=== PATIENT | female | born 1955 | race Two or more races ===

== ENCOUNTER → 2024-03-04 | Outpatient (CLI) | payer MEDICARE, MEDICAID, SELFPAY ==
--- NOTE | 2024-03-04 13:00 | XR_ITS ---
Examination: Breast ultrasound, unilateral, left complete Date and time of exam: March 04, 2024 1328 hours INDICATIONS: Mammogram December 25, 2023 8 mm focal asymmetry inner upper left breast Technique: Real-time hamilton scale ultrasonographic imaging performed left breast including all 4 quadrants as well as nipple retroareolar and axillary region. Findings: 1:00 cyst 4 x 7 mm No solid nodules IMPRESSION: BI-RADS Category 2: Benign findings
--- NOTE | 2024-03-04 13:30 | XR_ITS ---
Examination: Diagnostic digital mammography, unilateral, left Computer aided detection 3-D breast Tomosynthesis, unilateral Date and time of exam: March 04, 2024 1358 hours INDICATIONS: Mammogram December 25, 2023 8 mm focal asymmetry retroareolar region left breast Technique: Nonmagnified MLO, CC views of the left breast have been obtained, reconstructed from 3-D Tomosynthesis images. R2 computer aided detection program utilized for evaluation of suspicious masses and/or abnormal calcifications. 3-D Tomosynthesis images obtained. Findings: Scattered areas of fibroglandular density 4 mm circumscribed nodule retroareolar region left breast Impression: BI-RADS category 2: Benign findings Recommend yearly follow-up mammography
== END | disposition home or self-care (01) ==
LOC: CDIM 13:02
PROVIDERS: Referring Provider Nurse Practitioner Primary Care; Visit Provider Nurse Practitioner Primary Care
DX: R92.322 Mammographic fibroglandular density, left breast (principal)
CPT/HCPCS: 76641; 77061; 77065; G0279

== ENCOUNTER 2024-04-20 12:00 | Emergency (ER) | payer MEDICARE, MEDICAID, SELFPAY ==
--- NOTE | 2024-04-20 | XR_ITS ---
Examinations: MRI Brain without intravenous contrast. MRA brain without intravenous contrast. MRA carotids without intravenous contrast 3-D vascular reconstructions Date and time of exam: July 18, 2024 1532 hours INDICATIONS: Stroke alert today, onset facial droop and headache beginning 10:30 AM this morning Technique: Multiple axial and sagittal images of the brain have been obtained MRA brain carotid images without contrast obtained, including 3-D postprocessing, vascular maximum intensity projection images Findings: Sellaturcica is not enlarged. The optic chiasm and infundibular stalk are not remarkable. Prepontine and interpeduncular cisterns are not enlarged. No localized enlargement of the medulla or sandrine. Fourth ventricle and cerebellar tonsils normal in position. Subacute hemorrhage is not seen. Fourth ventricle is midline. Mass in the cerebellopontine angle region is not evident. 7th and 8th nerve complexes exhibits symmetry. Globes are symmetrical with no retro-orbital mass. Increased white matter signal mild Diffusion-weighted images demonstrate no focus of restricted diffusion Mass-effect upon the ventricular system is not identified. MRA carotid images degraded by patient motion. MRA brain images no large vessel occlusions Impression: Negative for acute hemorrhage, mass effect or midline shift No acute infarct Mild chronic microvascular white matter change No cerebral large vessel arterial occlusions
--- NOTE | 2024-04-20 12:03 | XR_ITS ---
Examination: CT brain head without contrast. 2-D sagittal coronal reconstructions Date and time of exam: 2019 hours INDICATIONS: Stroke alert, onset facial droop headache beginning 10:30 AM this morning CTDI: vol (mGy):49.9 DLP: (mGycm):984 Technique: Multiple CT axial sections of the brain have been obtained, 5 mm slice thickness. Contrast has not been administered. 2-D sagittal, coronal reconstructions have been obtained Low dose protocols were performed. One or more of the following dose reduction techniques were used; automated exposure control, adjustment of the mA and/or KV according to patient size, use of iterative reconstruction technique. Findings: No significant ventricular enlargement. Intra-axial or extra-axial hemorrhage density is not seen. No mass effect or midline shift Basal cisterns are not remarkable. Fourth ventricle is midline. Cranial vault intact. Impression: Negative for acute hemorrhage, mass effect or midline shift Advise clinical correlation follow-up accordingly
--- NOTE | 2024-04-20 12:03 | EKG_ITS ---
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
[2024-04-20 12:11] LABS: Basophils % (Auto) 0 % (0-2.5); Eosinophils # (Auto) 0.2 Thou/mm3 (0.0-0.5); Eosinophils % (Auto) 2 % (0-10); Hematocrit 41.8 % (36.0-46.0); Hemoglobin 14.4 g/dL (12.0-16.0); Immature Granulocytes % (Auto) 0 % (0-0); Immature Granulocytes Auto 0.02 Thou/mm3 (0.00-0.00); Lymphocytes # (Auto) 3.1 Thou/mm3 (1.0-4.8); Lymphocytes % (Auto) 34 % (10-50); Mean Corpuscular HGB Conc 34.4 g/dl (31.0-37.0); Mean Corpuscular Hemoglobin 29.3 pg (25.0-35.0); Mean Corpuscular Volume 85 fL (80-100); Monocytes # (Auto) 0.8 Thou/mm3 (0.0-0.8); Monocytes % (Auto) 9 % (0-12); Neutrophils % (Auto) 55 % (37-80); Nucleated Red Blood Cell % 0 /100 WBC (0); Platelet Count 289 Thou/mm3 (140-440); RDW Standard Deviation 39.5 fL (36.4-46.3); Red Blood Count 4.92 Miln/mm3 (4.00-5.20); White Blood Count 9.1 Thou/mm3 (3.6-11.0)
--- NOTE | 2024-04-20 12:23 | ESCONSULT_ITS ---
Tele Neuro Consultation Consultation Date 04/20/24 Consultation Narrative [facility] Tele[facility]urology Consult Services Patient Name:???Inge Saenz Date of :???1955 Identification Number:??? Date of Service:???04/20/2024 11:53:55 Diagnosis:?R29.810 - Facial numbness/ Facial weakness Impression: ?Differential includes stroke/TIA versus Walls's palsy versus tox metabolic. Greater recommend headache cocktails as needed, tox metabolic and infectious workup per the ER, admit for MRI brain with and without contrast to definitively rule out any acute intracranial findings. If negative can treat as Walls's palsy. Neuro follow-up recommended. Our recommendations are outlined below. Recommendations: ? Stroke/Telemetry Floor ? Neuro Checks ? Bedside Swallow Eval ? DVT Prophylaxis ? IV Fluids, Normal Saline ? Head of Bed 30 Degrees ? Euglycemia and Avoid Hyperthermia (PRN Acetaminophen) Advanced Imaging: Advanced Imaging Deferred because: Non-disabling symptoms as verified by the patient; no cortical signs so not consistent with LVO Metrics: Last Known Well: Unknown Dispatch Time: 04/20/2024 11:53:55 Arrival Time: 04/20/2024 12:00:00 Initial Response Time: 04/20/2024 11:56:34Symptoms: MIXON, facial droop. Initial patient interaction: 04/20/2024 12:03:05 NIHSS Assessment Completed: 04/20/2024 12:13:28Patient is not a candidate for Thrombolytic. Thrombolytic Medical Decision: 04/20/2024 12:13:30Patient was not deemed candidate for Thrombolytic because of following reasons: LKW outside 4.5 hr window. . I personally Reviewed the CT Head and it Showed no acute abnormalities ED Physician not notified of diagnostic impression and management plan because Called ED multiple times no one picked up the phone. Please call with questions or concerns History of Present Illness:Patient is a 68 year old Female. Patient was brought by EMS for symptoms of MIXON, facial droop. 68-year-old female history of diabetes presents the hospital for headache and facial droop. Apparently she has been having headache for the past 8 days. Today she was at the doctor's office and they noticed facial droop therefore she was sent to the ER. Patient reports that she is having headache especially around the left ear. Noticing bilateral dry eyes for the past few days. Denies any taste changes. On exam she appears to have facial weakness that seems to be peripheral in the left side. The rest of her exam is nonfocal. She does report some decrease sensation on the left face when compared to the right but unclear. Patient appears to be little somnolent and lethargic. Past Medical History: ?Diabetes Mellitus Other PMH:? See HPI Above Medications: No Anticoagulant use? No Antiplatelet use Reviewed EMR for current medications Allergies:? Reviewed Social History: Drug Use: No Family History: There is no family history of premature cerebrovascular disease pertinent to this consultation ROS : 14 Points Review of Systems was performed and was negative except mentioned in HPI. Past Surgical History: There Is No Surgical History Contributory To Today?s Visit Examination: BP(208/),?Pulse(80), 1A: Level of Consciousness - Arouses to minor stimulation?+ 1 1B: Ask Month and Age - Both Questions Right?+ 0 1C: Blink Eyes & Squeeze Hands - Performs Both Tasks?+ 0 2: Test Horizontal Extraocular Movements - Normal?+ 0 3: Test Visual Talley - No Visual Loss?+ 0 4: Test Facial Palsy (Use Grimace if Obtunded) - Partial paralysis (lower face)? + 2 5A: Test Left Arm Motor Drift - No Drift for 10 Seconds?+ 0 5B: Test Right Arm Motor Drift - No Drift for 10 Seconds?+ 0 6A: Test Left Leg Motor Drift - No Drift for 5 Seconds?+ 0 6B: Test Right Leg Motor Drift - No Drift for 5 Seconds?+ 0 7: Test Limb Ataxia (FNF/Heel-Barksdale) - No Ataxia?+ 0 8: Test Sensation - Mild-Moderate Loss: Less Sharp/More Dull?+ 1 9: Test Language/Aphasia - Normal; No aphasia?+ 0 10: Test Dysarthria - Normal?+ 0 11: Test Extinction/Inattention - No abnormality?+ 0 NIHSS Score:?4 Pre-Morbid Modified Claudio Scale:0 Points = No symptoms at all This consult was conducted in real time using interactive audio and video technology. Patient was informed of the technology being used for this visit and agreed to proceed. Patient located in hospital and provider located at home/office setting. Patient is being evaluated for possible acute neurologic impairment and high probability of imminent or life-threatening deterioration. I spent total of 35 minutes providing care to this patient, including time for face to face visit via telemedicine, review of medical records, imaging studies and discussion of findings with providers, the patient and/or family. Dr Emerson Contreras [facility] For Inpatient follow-up with [facility] physician please call [facility] at . As we are not an outpatient service for any post hospital discharge needs please contact the hospital for assistance. If you have any questions for the [facility] physicians or need to reconsult for clinical or diagnostic changes please contact us via [facility] at .
[2024-04-20 12:27] LABS: Partial Thromboplastin Time 31.9 Seconds (22.0-36.0); Prothrombin Time 11.4 Seconds (9.0-12.2)
--- NOTE | 2024-04-20 12:27 | PD.EDNEURO ---
Neuro Symptoms Deficit-RME/HPI General Chief Complaint: Altered Mental Status Stated Complaint: LEFT FACIAL WEAKNESS/PAIN WITH LEFT EAR PAIN & H/A Time Seen by Provider: 04/20/24 12:03 Arrival date/time: 04/20/24 12:00 RME / HPI RME / HPI Narrative: 68 year old female presents to the ED BIBA from PCP clinic for evaluation of left facial droop today. Per medics report, patient consulted PCP today for a left sided headache beginning 8 days ago and while in office was noted patient had a left facial droop. On their evaluation patient has no other deficits, equal strength in all extremities with no loss of movement, speaking clearly, GCS of 15. Prehospital BS 118 and blood pressure 208/81. Related Data Previous Rx's ?Medication ?Instructions ?Recorded prednisone 50 mg tablet 50 mg PO QDAY #5 tabs 04/20/24 valacyclovir 1 gram tablet 1,000 mg PO Q8H #21 tabs 04/20/24 (Valtrex) Allergies Allergy/AdvReac Type Severity Reaction Status Date / Time No Known Allergies Allergy Verified 06/15/17 11:18 Review of Systems Review of Systems Narrative Review of Systems: Gen: No fever, no chills, no weight loss EYES: No discharge, no visual changes, no pain HEENT: No ear pain, no congestion, no sore throat PULM: no shortness of breath, no cough, no congestion CV: No chest pain, no dyspnea on exertion, no palpitations, no chest tightness GI: No nausea, no vomiting, no diarrhea, no pain, no constipation : No frequency, no urgency,? no dysuria Musc/skel: No joint pain, no back pain Skin: No rash, no ecchymosis, no lesions Psyc: No hallucinations, no depression Heme/Lymph: No easy bleeding or bruising tendencies Neuro: No weakness, +headache, +left facial droop Past Medical History Past Medical History RESPIRATORY: Positive Pneumonia MUSCULOSKELETAL: Positive Musculoskeletal Disorders and Arthritis ENDOCRINE: Positive Diabetes Mellitus Type 2 Social History SMOKING STATUS: Never smoker ED Exam Narrative Physical exam: GENERAL APPEARANCE: AxOx4, no obvious distress, nontoxic appearing HEENT: NC, AT. Left TMJ tenderness with left sided facial droop. MMM. EOMI, clear conjunctiva, oropharynx clear. NECK: Supple without lymphadenopathy. No stiffness or restricted ROM. HEART: Normal rate and regular rhythm, normal S1/S1, no m/r/g LUNGS: CTAB, moving air well. No crackles or wheezes are heard. ABDOMEN: Soft, nontender, nondistended with good bowel sounds heard. BACK: No midline C/T/L spine pain or deformity, No CVAT, no obvious deformity. EXTREMITIES: Without cyanosis, clubbing or edema. MUSCULOSKELETAL: FROM of all major joints, no chest tenderness NEUROLOGICAL: Left TMJ tenderness with left sided facial droop that involves the forehead. Positive for Empire palsy phenomenon on the left. Alert and oriented, moving all 4 extremities. Skin: Warm and dry without any rash. Course Quality Measures Suspected type of Stroke: Non Acute (Walls's palsy) Last know well: unknown Tenecteplase given: Reason(s) TPA not given: Outside the time window not given stroke Orders Category Date Time Status Bedside Blood Glucose NOW Care 04/20/24 12:03 Completed Cook Night NOW Care 04/20/24 12:03 Completed Continuous Pulse Oximetry NOW Care 04/20/24 12:03 Completed EKG (ED ONLY) *Do not use* NOW Care 04/20/24 12:03 Completed In and Out Catheter NEEDED Care 04/20/24 12:03 Completed Insert IV NOW Care 04/20/24 12:03 Completed MRI Screening NOW Care 04/20/24 13:17 Completed NPO NOW Care 04/20/24 12:03 Completed Neuro Check Q30MIN Care 04/20/24 12:04 Completed Nurse Swallow Screen x1 Care 04/20/24 12:03 Completed Consult to Neurology / Tele-Neurology Routine Cons 04/20/24 12:[address] stroke protocol Stat Exams 04/20/24 12:03 Completed EKG (ED Only) Stat Exams 04/20/24 12:03 Draft MR stroke protocol Stat Exams 04/20/24 Completed CBC Stat Lab 04/20/24 12:04 Completed Comprehensive Metabolic Panel Stat Lab 04/20/24 12:04 Completed Magnesium Stat Lab 04/20/24 12:04 Completed Partial Thromboplastin Time Stat Lab 04/20/24 12:04 Completed Prothrombin Time with INR Stat Lab 04/20/24 12:04 Completed Troponin I Stat Lab 04/20/24 12:04 Completed Urinalysis Stat Lab 04/20/24 14:41 Completed DiphenhydrAMINE INJ [Benadryl Inj] Med 04/20/24 13:15 Discontinued 50 mg IV X1 ONE HYDROmorphone INJ [Dilaudid Inj] Med 04/20/24 17:18 Discontinued 0.5 mg IVP X1 ONE Ketorolac Inj [Toradol Inj] Med 04/20/24 13:15 Discontinued 15 mg IVP X1 ONE LORazepam [Ativan Inj] Med 04/20/24 14:40 Discontinued 1 mg IVP X1 ONE Metoclopramide Inj [Reglan Inj] Med 04/20/24 13:15 Discontinued 10 mg IV X1 ONE Ondansetron Inj [Zofran Inj] Med 04/20/24 12:03 Discontinued 4 mg IV Q4HR PRN predniSONE Med 04/20/24 13:40 Discontinued 60 mg PO X1 ONE Oxygen Delivery NOW RT 04/20/24 12:03 Completed Vital Signs Vital signs: Vital Signs Temperature 98.1 F 04/20/24 12:30 Pulse Rate 61 04/20/24 12:30 Respiratory Rate 18 04/20/24 12:30 Blood Pressure 167/77 H 04/20/24 12:30 Pulse Oximetry (%) 95 04/20/24 12:30 Neuro Symptoms / Deficit MDM Narrative MDM Narrative:: Ms. Saenz presents to the emergency department with left sided facial pain and left-sided facial droop consistent with a Walls's palsy. She was sent by EMS from her primary care provider for the symptoms and arrived as a stroke alert. She does not have further neurologic deficits and is isolated to the left face. She proceeded through the stroke alert process, where she is not a candidate for thrombolysis due to likely Walls's palsy. Neurology was requesting MRI to better rule out an acute ischemic event. Given ischemic event is of low suspicion, MRI was done during ED stay which was negative for ischemic stroke. She appears to have a lot of stress and tension which could be related to a TMJ pain. I advised her local icing of the jaw joint, and she will be started on steroids and antivirals for her Walls's palsy. Rebecca Marin, am scribing for and in the presence of Dr. Jauregui. Patient data External records reviewed:: [facility] previous records (I reviewed ED visit on 06/15/2017) and EMS form Clinical information provided by:: patient and EMS Social determinants that could affect healthcare access:: none Patient has the following chronic illnesses:: Diabetes How is presenting disease/condition affected by chronic disease/condition?: exacerbated by Evaluation data The following diagnostics were reviewed and interpreted by me:: lab results, radiology exam(s) and EKG tracing(s) Lab and/or radiology exams considered but not ordered:: None Interpretation Summary: Ordering Physician: Ludwin Jauregui MD Date of Service: 04/20/24 Procedure(s): CT stroke protocol Accession Number(s): [id number] cc: Ludwin Jauregui MD; Milo Martinez MD~ Examination: CT brain head without contrast. 2-D sagittal coronal reconstructions Date and time of exam: 2019 hours INDICATIONS: Stroke alert, onset facial droop headache beginning 10:30 AM this morning CTDI: vol (mGy):49.9 DLP: (mGycm):984 Technique: Multiple CT axial sections of the brain have been obtained, 5 mm slice thickness. Contrast has not been administered. 2-D sagittal, coronal reconstructions have been obtained Low dose protocols were performed. One or more of the following dose reduction techniques were used; automated exposure control, adjustment of the mA and/or KV according to patient size, use of iterative reconstruction technique. Findings: No significant ventricular enlargement. Intra-axial or extra-axial hemorrhage density is not seen. No mass effect or midline shift Basal cisterns are not remarkable. Fourth ventricle is midline. Cranial vault intact. Impression: Negative for acute hemorrhage, mass effect or midline shift Advise clinical correlation follow-up accordingly Dictated By:Milo Martinez MD Signed By:<Electronically signed by Milo Martinez MD in OV>04/20/24 1213 Medications / Prescriptions Medications or Prescriptions considered but not ordered:: None Medication administrations:: Medication Administration History Discontinued Medications Diphenhydramine HCl (Diphenhydramine Inj 50 Mg/Ml Vial) 50 mg IV X1 ONE Stop: 04/20/24 13:16 Last Admin: 04/20/24 14:11 Dose: 50 mg Documented By: PURNIMA Hydromorphone HCl (Hydromorphone Inj 2 Mg/Ml Vial) 0.5 mg IVP X1 ONE Stop: 04/20/24 17:19 Last Admin: 04/20/24 17:25 Dose: 0.5 mg Documented By: PURNIMA Ketorolac Tromethamine (Ketorolac Inj 30 Mg/Ml Vial) 15 mg IVP X1 ONE Stop: 04/20/24 13:16 Last Admin: 04/20/24 14:12 Dose: 15 mg Documented By: PURNIMA Lorazepam (Lorazepam 2 Mg/Ml Vial) 1 mg IVP X1 ONE Stop: 04/20/24 14:41 Last Admin: 04/20/24 14:56 Dose: 1 mg Documented By: PURNIMA Metoclopramide HCl (Metoclopramide Inj 5 Mg/Ml Vial 2 Ml) 10 mg IV X1 ONE; Protocol Stop: 04/20/24 13:16 Last Admin: 04/20/24 14:11 Dose: 10 mg Documented By: PURNIMA Ondansetron HCl (Ondansetron Inj 2 Mg/Ml Inj 2 Ml) 4 mg IV Q4HR PRN PRN Reason: NAUSEA OR VOMITING Stop: 05/20/24 12:02 Last Admin: 04/20/24 17:26 Dose: 4 mg Documented By: Admin: 04/20/24 14:11 Dose: 4 mg Documented By: PURNIMA Prednisone (Prednisone 20 Mg Tablet) 60 mg PO X1 ONE Stop: 04/20/24 13:41 Last Admin: 04/20/24 14:56 Dose: 60 mg Documented By: PURNIMA See above Consultations Consultation(s) initiated? (list below): Yes Consultation #1 (Physician, Specialty, Details): I spoke with teleneurologist Dr. Contreras. States patient is not a tpa candidate and is out of the 4.5 window. Diagnosis Neuro Differential Diagnosis: subarachnoid hemorrhage, cerebrovascular accident, transient cerebral ischemia and other (Migraine ) Most likely diagnosis given after review of the tests above:: See below Admission Indicated Admission indicated?: not indicated Admission Request Was there a request for admission?: No Disposition Plan Disposition Plan: Discharge Discharge Attestation Discharge Attestation: The patient and all family members were given an opportunity to ask questions and understood the discharge instructions. Discharge instructions specifically effects, indications for sooner follow up or return to the emergency department, and the expected course of current diagnosis. Patient condition: Stable Discharge Plan Plan Patient Disposition: HOME (Self Care) Prescriptions/Referrals Prescriptions/Med Rec: New prednisone 50 mg tablet 50 mg PO QDAY Qty: 5 0RF valacyclovir [Valtrex] 1 gram tablet 1,000 mg PO Q8H Qty: 21 0RF Referrals: Edgar SCHULTZ)Madina FNP [Primary Care Provider] - In 1 week Problem List Clinical Impression: TMJ inflammation, Walls's palsy Patient/Caregiver Discharge Instructions Education Materials: ED Walls's Palsy, ED TMJ Syndrome Additional Instructions: Amy un seguimiento con caba m?dico de atenci?n primaria en 7 a 10 d?as si los s?ntomas no mejoran. Puede regresar al departamento de emergencias antes si los s?ntomas empeoran o si nota alg?n problema nuevo y preocupante. Print Language: Lao Stand Alone Forms: Roselyn Award Info., Patient Portal Info Letter
[2024-04-20 12:30] VITALS: BP 167/77; PULSE 61; RESP 18; TEMP 36.7; O2SAT 95
[2024-04-20 12:33] VITALS: PULSE 59
[2024-04-20 12:35] VITALS: BMI 36.1
[2024-04-20 12:39] LABS: Alanine Aminotransferase 19 U/L (10-49); Albumin, Serum 4.7 gm/dL (3.4-4.8); Albumin/Globulin Ratio 1.6 (1.2-2.2); Alkaline Phosphatase 64 U/L (46-116); Anion Gap 10 (7-16); Aspartate Amino Transferase 18 U/L (0-34); BUN/Creatinine Ratio 32 Ratio (12-20); Bilirubin,Total 0.3 mg/dL (0.3-1.2); Blood Urea Nitrogen 19 mg/dL (9-23); Calcium 10.4 mg/dL (8.3-10.6); Calcium (Corrected) 10.4 mg/dL (8.5-10.1); Carbon Dioxide 27.4 mMol/L (20.0-31.0); Chloride 97 mMol/L (98-107); Creatinine (Component) 0.6 mg/dL (0.6-1.3); Globulin 2.9 gm/dL (2.3-3.5); Glucose 111 mg/dL (74-106); Osmolality,Calculated 271 (275-295); Potassium 3.5 mMol/L (3.4-5.1); Sodium 134 mMol/L (136-145); Total Protein 7.6 gm/dL (5.7-8.2); eGFR > 60 See Note
[2024-04-20 12:52] LABS: Troponin I < 0.020 ng/mL (0.0-0.045)
[2024-04-20 13:03] VITALS: PULSE 54; RESP 18; RESP 94
[2024-04-20] MEDS: DiphenhydrAMINE INJ 50 MG/ML VIAL IV (14:11)
[2024-04-20] MEDS: METOCLOPRAMIDE INJ 5 MG/ML VIAL 2 ML 10 MG IV (14:11)
[2024-04-20] MEDS: ONDANSETRON INJ 2 MG/ML INJ 2 ML 4 MG IV ×2 (14:11→17:26)
[2024-04-20] MEDS: KETOROLAC INJ 30 MG/ML VIAL 15 MG IVP (14:12)
[2024-04-20 14:34] VITALS: BP 148/75; PULSE 60; RESP 16; TEMP 36.8; O2SAT 94
[2024-04-20 14:49] LABS: Collection Type, Urine Clean Catch; RBC,Urine 0 /hpf (0-3); Squamous Epithelial Cell,Urine 0 /hpf (0-5)
[2024-04-20] MEDS: LORazepam 2 MG/ML VIAL 1 MG IVP (14:56)
[2024-04-20] MEDS: predniSONE 20 MG TABLET 60 MG PO (14:56)
[2024-04-20 15:19] LABS: Bilirubin,Urine Negative (Negative); Blood,Urine Negative (Negative); Clarity,Urine Clear (Clear/Hazy); Color,Urine Colorless (Lt Yel-Yel); Glucose, Urine 4+ (Negative); Ketones,Urine Negative (Negative); Leukocyte Esterase,Urine Negative (Negative); Nitrite,Urine Negative (Negative); Protein,Urine Negative (Neg - Trace); Specific Gravity,Urine 1.007 (1.001-1.035); Urobilinogen,Urine Negative mg/dL (0.0-1.0); WBC,Urine < 1 /hpf (0-5)
[2024-04-20 17:05] VITALS: BP 134/70; PULSE 57; RESP 19; TEMP 36.5; O2SAT 94
--- NOTE | 2024-04-20 17:13 | PC.NURSE ---
PATIENT STATES 'EXCRUCIATING' PAIN PAIN 9/10. ER PROVIDER INFORMED AND VERBAL ORDER FOR 0.5MG HYDROMORPHONE IV GIVEN ONE TIME.
[2024-04-20] MEDS: HYDROmorphone INJ 2 MG/ML VIAL 0.5 MG IVP (17:25)
== END 2024-04-20 18:02 | disposition home or self-care (01) ==
PROVIDERS: Emergency Provider Emergency Medicine; PCP Nurse Practitioner Primary Care
DX: M26.602 Left temporomandibular joint disorder, unspecified (principal); G51.0 Bell's palsy
CPT/HCPCS: 36415; 70450; 70544; 80053; 81001; 83735; 84484; 85025; 85610; 85730; 93005; 96374; 96375; 99285; J1200; J1885; J2060; J2405; J2765; J3490; J7512

== ENCOUNTER → 2025-02-22 | Outpatient (CLI) | payer MEDICARE, MEDICAID, SELFPAY ==
--- NOTE | 2025-02-22 | XR_ITS ---
Examination: Screening digital mammography, bilateral Computer aided detection 3-D breast Tomosynthesis, bilateral Date and time of exam: 02/22/2025, 3:12 p.m. Comparisons: 03/04/2024 Indications: Screening Technique: Nonmagnified MLO, CC views of the breasts to been obtained, reconstructed from 3-D Tomosynthesis images. R2 computer aided detection program utilized for evaluation of suspicious masses and/or abnormal calcifications. 3-D Tomosynthesis images obtained. Technologist: Findings: There are scattered areas of fibroglandular density. No evidence of abnormal masses or suspicious calcifications. Impression: BI-RADS category 1: Negative findings (within normal) Recommend 1 year follow-up mammogram
== END | disposition home or self-care (01) ==
LOC: CDIM 13:52
PROVIDERS: PCP Nurse Practitioner Primary Care; Referring Provider Nurse Practitioner Primary Care; Visit Provider Nurse Practitioner Primary Care
DX: Z12.31 Encounter for screening mammogram for malignant neoplasm of breast (principal); R92.313 Mammographic fatty tissue density, bilateral breasts
CPT/HCPCS: 77063; 77067